=== PATIENT | female | born 1940 | race African-American/Black ===

== ENCOUNTER → 2021-06-29 14:44 | Outpatient (CLI) | payer MEDICARE, SELFPAY ==
--- NOTE | ~2021-06-29 | XR_ITS ---
XR hip RT min 2V DATE: 06/29/2021 14:58 INDICATION: Pain in right hip TECHNIQUE: AP, lateral and cross table lateral views of right hip COMPARISON: None FINDINGS: No fracture, dislocation, avascular necrosis or bone destruction is detected. There is joint space narrowing and spurring consistent with osteoarthritis. IMPRESSION: Moderate osteoarthritis of right hip Reviewed, dictated and finalized at location A.
== END ==
PROVIDERS: PCP Internal Medicine; Visit Provider Internal Medicine
DX: M25.551 Pain in right hip (principal); M16.11 Unilateral primary osteoarthritis, right hip
CPT/HCPCS: 73502

== ENCOUNTER 2022-01-02 11:29 | Outpatient (CLI) | payer MEDICARE, SELFPAY ==
[2022-01-02 19:23] LABS: Alanine Aminotransferase 22 U/L (6-35); Albumin Level 4.3 g/dL (3.5-5.1); Alkaline Phosphatase 64 U/L (38-126); Anion Gap 14 mmol/L (8-16); Aspartate Amino Transferase 28 U/L (14-36); Bilirubin,Total 0.6 mg/dL (0.2-1.3); Blood Urea Nitrogen 19 mg/dL (7-17); Calcium 9.8 mg/dL (8.4-10.2); Carbon Dioxide 24 mmol/L (22-30); Chloride 102 mmol/L (98-107); Cholesterol 165 mg/dL (0-200); Estimated Glomerular Filt Rate > 60; Glucose 105 mg/dL (65-110); HDL Direct 39 mg/dL; Potassium 3.6 mmol/L (3.4-5.0); Sodium 140 mmol/L (137-145); Triglycerides 96 mg/dL (<150); Uric Acid 3.9 mg/dL (2.5-7.5)
[2022-01-02 19:34] LABS: LDL Cholesterol Direct 86 mg/dL
== END 2022-01-02 11:30 | disposition home or self-care (01) ==
LOC: ANHGOSHLAB 11:31
PROVIDERS: PCP Family Medicine; Visit Provider Family Medicine
DX: M10.9 Gout, unspecified (principal); I10 Essential (primary) hypertension; E03.9 Hypothyroidism, unspecified; E78.5 Hyperlipidemia, unspecified
CPT/HCPCS: 36415; 80053; 80061; 84443; 84550

== ENCOUNTER 2022-01-14 15:27 | Emergency (ER) | payer MEDICARE, SELFPAY ==
--- NOTE | 2022-01-14 15:42 | ED.URI ---
HPI - URI/Sore Throat General Stated Complaint: cough,nasal drainage Time Seen by Provider: 01/14/22 15:55 Source: patient and RN notes reviewed Mode of arrival: ambulatory Limitations: no limitations History of Present Illness HPI Narrative: 81-year-old female presents with concern for sore throat, cough that started yesterday. She reports fatigue. She reports her daughter at home has had similar symptoms for 1 week. She denies any [id number] mention. She denies fever, chills, sweats, shortness of breath. Denies nausea, vomiting, diarrhea MD elicited complaint: cough and sore throat Related Data Home Medications Medication Instructions Recorded Confirmed bimatoprost 0.01 % eye drops 1 drop ophthalmic (eye) DAILY 03/03/19 08/09/21 (Lumigan) dorzolamide 22.3 mg-timolol 6.8 1 drop ophthalmic (eye) BID 03/03/19 08/09/21 mg/mL eye drops (Cosopt) Allergies Allergy/AdvReac Type Severity Reaction Status Date / Time Penicillins Allergy Intermediate rash Verified 01/01/22 10:11 codeine Allergy Mild Nausea Verified 01/01/22 10:11 hydrocodone Allergy Mild nausea Verified 01/01/22 10:11 Review of Systems Review of Systems: CONSTITUTIONAL: Reports malaise, fatigue. Denies chills, sweats, or fever. EYES: Denies visual changes, redness, or discharge. ENT: Reports rhinorrhea, congestion, and sore throat. Denies sinus pain, otalgia CARDIOVASCULAR: Denies chest pain, palpitations, or edema. RESPIRATORY: Reports cough. Denies dyspnea. GASTROINTESTINAL: Denies abdominal pain, nausea, vomiting, diarrhea SKIN: Denies rash or itching. MUSCULOSKELETAL: Denies myalgia. NEUROLOGIC: Denies headache. All systems reviewed & are unremarkable except as noted in HPI and below COUNTS INCLUDE 234 BEDS AT THE [facility] Past Medical History Medical History Body mass index (BMI) 40.0-44.9, adult Chronic GERD Dyslipidemia Essential (primary) hypertension GERD (gastroesophageal reflux disease) Gout without tophus Hip pain, right History of colon polyps Hyperlipidemia Hypertension Hypothyroidism (acquired) Morbid obesity Morbid obesity with body mass index (BMI) of 40.0 to 49.9 Other and unspecified hyperlipidemia Plantar fascial fibromatosis Post-menopause Primary open-angle glaucoma, bilateral, mild stage Trochanteric bursitis, right hip Surgical History Surgical History H/O hysterectomy for benign disease Family History Family History Sibling Family history of liver disease, Onset Age: 69 Father Family history of Parkinson's disease, Onset Age: 83 Mother Patient's mother is , Onset Age: 78 Social History Social History Smoking status: Never smoker Second hand tobacco smoke exposure: Yes Alcohol intake: current Comments At time of signature, agree with nursing past medical, surgical, social and family history. There is no relevant family history pertinent to the presenting complaint Exam Narrative: GENERAL: Well-appearing, well-nourished, and in no acute distress. HEAD: Normocephalic EYES: PERRLA, conjunctivae clear ENT: Nares clear, clear discharge. Mucous membranes moist. TM pearly mckenzie with dull light reflex bilaterally; no tragal tenderness. Oropharynx not erythematous without lesions. Tonsils not enlarged and without exudate, no drooling, no hoarseness, no trismus, uvula midline. NECK: Supple. No lymphadenopathy CHEST: Clear to auscultation, breath sounds equal. No wheezing, rhonchi, rales, or stridor. No respiratory distress, speaks in full sentences. HEART: Regular rate and rhythm. No murmur heard. SKIN: Warm, dry, no rash. NEURO: Alert and oriented x3. PSYCH: Normal mood and affect Course Course Emergency Course: Patient is aware of diagnosis, understands and agrees to tomeka
[2022-01-14 16:00] VITALS: BP 124/80; PULSE 85; RESP 15; TEMP 36.6; O2SAT 100
== END 2022-01-14 16:23 | disposition home or self-care (01) ==
PROVIDERS: Emergency Provider Nurse Practitioner; PCP Family Medicine
DX: J06.9 Acute upper respiratory infection, unspecified (principal); Z20.822 Contact with and (suspected) exposure to COVID-19; E78.5 Hyperlipidemia, unspecified; I10 Essential (primary) hypertension; K21.9 Gastro-esophageal reflux disease without esophagitis; M10.9 Gout, unspecified; R78.5 Finding of other psychotropic drug in blood; E03.9 Hypothyroidism, unspecified; E66.01 Morbid (severe) obesity due to excess calories; Z68.41 Body mass index [BMI] 40.0-44.9, adult
CPT/HCPCS: 87426; 99213; C9803; G0463

== ENCOUNTER 2022-02-05 14:47 | Outpatient (CLI) | payer MEDICARE, SELFPAY ==
--- NOTE | ~2022-02-05 | US_ITS ---
EXAMINATION: US venous doppler LE RT DATE: 02/05/2022 15:25 INDICATION: Right lower limb localized edema. TECHNIQUE: Grayscale ultrasound images without and with compression and Doppler ultrasound images of the right lower extremity veins were obtained. COMPARISON: None. FINDINGS: The visualized portions of right common femoral vein, profunda (deep) femoral vein, femoral vein, pop liteal vein, peroneal veins, posterior tibial veins, and greater saphenous vein outflow are patent. IMPRESSION: 1. No deep venous thrombosis. Reviewed, dictated and finalized at location A. 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
== END 2022-02-05 14:48 | disposition home or self-care (01) ==
PROVIDERS: PCP Family Medicine; Visit Provider Nurse Practitioner Family
DX: R60.0 Localized edema (principal)
CPT/HCPCS: 93971

== ENCOUNTER 2022-05-12 12:14 | Emergency (ER) | payer MEDICARE, SELFPAY ==
--- NOTE | 2022-05-12 12:16 | ED.EYEPROB ---
HPI - Eye Problem General Chief complaint: Eye Problems Stated complaint: rt eye is red Time Seen by Provider: 05/12/22 12:16 Source: patient and RN notes reviewed History of Present Illness HPI Narrative: Patient is an 82-year-old female who presents to Urgent Care with her friend with complaints of right eye redness. Patient states that her friend noticed late last night and she woke up with some increased redness morning. Patient denies any vision changes, headache or injury to the eye. States that she does take eyedrops for glaucoma. States that the eye is slightly itchy and has been having some clear tearing. No other acute complaints. No acute distress noted. Patient aware of plan of care. Some parts of this dictation were generated by voice recognition software and may contain typographical and/or grammatical inaccuracies. Related Data Home Medications Medication Instructions Recorded Confirmed bimatoprost 0.01 % eye drops 1 drop ophthalmic (eye) DAILY 03/03/19 05/12/22 ([facility]igan) dorzolamide 22.3 mg-timolol 6.8 1 drop ophthalmic (eye) BID 03/03/19 05/12/22 mg/mL eye drops (Cosopt) Allergies Allergy/AdvReac Type Severity Reaction Status Date / Time Penicillins Allergy Intermediate rash Verified 05/12/22 12:25 codeine Allergy Mild Nausea Verified 05/12/22 12:25 hydrocodone Allergy Mild nausea Verified 05/12/22 12:25 Review of Systems Review of Systems: CONSTITUTIONAL: Denies fever, chills, or sweats. EYES: Denies visual changes. Reports of redness to the right eye with clear drainage and mild itching ENT: Denies rhinorrhea, congestion, sore throat, or otalgia. CARDIOVASCULAR: Denies chest pain, palpitations, or edema. RESPIRATORY: Denies cough or dyspnea. GASTROINTESTINAL: Denies abdominal pain, nausea, vomiting, or diarrhea. GENITOURINARY: Denies dysuria or hematuria. SKIN: Denies rash or itching. MUSCULOSKELETAL: Denies back pain, joint pain, or myalgia. NEUROLOGIC: Denies headache, numbness, or weakness. All other systems reviewed are negative, except as documented in HPI. [facility] Past Medical History Medical History Body mass index (BMI) 40.0-44.9, adult Chronic GERD Dyslipidemia Essential (primary) hypertension GERD (gastroesophageal reflux disease) Gout without tophus Hip pain, right History of colon polyps Hyperlipidemia Hypertension Hypothyroidism (acquired) Morbid obesity Morbid obesity with body mass index (BMI) of 40.0 to 49.9 Other and unspecified hyperlipidemia Plantar fascial fibromatosis Post-menopause Primary open-angle glaucoma, bilateral, mild stage Trochanteric bursitis, right hip Surgical History Surgical History H/O hysterectomy for benign disease Family History Family History Sibling Family history of liver disease, Onset Age: 69 Father Family history of Parkinson's disease, Onset Age: 83 Mother Patient's mother is , Onset Age: 78 Social History Social History Smoking status: Never smoker Second hand tobacco smoke exposure: Yes Alcohol intake: current Substance use: never Substance use type: does not use Lack of Transportation: No Lack of Food: Never True Current Housing: I Have Housing Concerned About Future Housing: No Difficulty Paying Gas/Electric Bills: No Difficulty Paying for Meds: No Currently Unemployed: No Education: Master's Degree or Higher Difficulty w/ Childcare or Family Care: No Living arrangements: with family Occupation/Education: retired Gender identity (if verbalized by the patient): Female Agree to blood products: Yes Comments At the time of my signature, I reviewed and agree with the nursing past medical, surgical, social, and family history. Ther
[2022-05-12 12:32] VITALS: BP 107/66; PULSE 81; RESP 16; TEMP 35.9; O2SAT 98
== END 2022-05-12 12:50 | disposition home or self-care (01) ==
PROVIDERS: Emergency Provider Nurse Practitioner Family; PCP Family Medicine
DX: H11.31 Conjunctival hemorrhage, right eye (principal); E78.5 Hyperlipidemia, unspecified; I10 Essential (primary) hypertension; E03.9 Hypothyroidism, unspecified
CPT/HCPCS: 99213; G0463

== ENCOUNTER → 2022-09-26 13:25 | Outpatient (CLI) | payer MEDICARE, SELFPAY ==
--- NOTE | ~2022-09-26 | MM_ITS ---
EXAMINATION: MM screening varun BI w deepa HISTORY: Screening mammogram TECHNIQUE: Craniocaudal and mediolateral oblique 3-D tomosynthesis images were obtained and synthetic 2-D images were generated. CAD analysis was submitted and interpreted. COMPARISON: May 12, 2018 bilateral screening mammogram BREAST PARENCHYMAL COMPOSITION: The breasts are almost entirely fatty. FINDINGS: There is no evidence of suspicious mass, calcification, or architectural distortion to sugg est malignancy in either breast. There has been no suspicious interval change. IMPRESSION: 1. No mammographic evidence of malignancy. 2. Recommend routine screening mammography in one year. BI-RADS Category 1: Negative Reviewed, dictated and finalized at location A.
== END ==
PROVIDERS: PCP Family Medicine; Visit Provider Family Medicine
DX: Z12.31 Encounter for screening mammogram for malignant neoplasm of breast (principal)
CPT/HCPCS: 77063; 77067

== ENCOUNTER 2023-01-10 09:22 | Outpatient (CLI) | payer MEDICARE, SELFPAY ==
[2023-01-10 20:01] LABS: Alanine Aminotransferase 22 U/L (6-35); Albumin Level 4.5 g/dL (3.5-5.1); Alkaline Phosphatase 61 U/L (38-126); Anion Gap 6 mmol/L (8-16); Aspartate Amino Transferase 29 U/L (14-36); Bilirubin,Total 0.8 mg/dL (0.2-1.3); Blood Urea Nitrogen 21 mg/dL (7-17); Carbon Dioxide 31 mmol/L (22-30); Chloride 104 mmol/L (98-107); Cholesterol 179 mg/dL (0-200); Estimated Glomerular Filt Rate > 60; Glucose 89 mg/dL (65-110); HDL Direct 44 mg/dL; Potassium 3.9 mmol/L (3.4-5.0); Sodium 141 mmol/L (137-145); Triglycerides 94 mg/dL (<150); Uric Acid 4.3 mg/dL (2.5-7.5)
[2023-01-10 20:20] LABS: LDL Cholesterol Direct 94 mg/dL
[2023-01-10 20:30] LABS: Free T4 Free Thyroxine 1.12 ng/mL (0.78-2.19)
== END 2023-01-10 09:23 | disposition home or self-care (01) ==
LOC: ANHGOSHLAB 09:24
PROVIDERS: PCP Family Medicine; Visit Provider Family Medicine
DX: Z13.220 Encounter for screening for lipoid disorders (principal); M10.9 Gout, unspecified; Z13.228 Encounter for screening for other metabolic disorders; E03.9 Hypothyroidism, unspecified
CPT/HCPCS: 36415; 80053; 80061; 84439; 84443; 84550

== ENCOUNTER 2024-01-29 11:09 | Outpatient (CLI) | payer MEDICARE, SELFPAY ==
[2024-01-29 18:52] LABS: Alanine Aminotransferase 16 U/L (6-35); Albumin Level 4.1 g/dL (3.5-5.1); Alkaline Phosphatase 67 U/L (38-126); Anion Gap 10 mmol/L (4-12); Aspartate Amino Transferase 35 U/L (14-36); Bilirubin,Total 0.8 mg/dL (0.2-1.3); Blood Urea Nitrogen 21 mg/dL (7-17); Carbon Dioxide 24 mmol/L (22-30); Chloride 105 mmol/L (98-107); Cholesterol 167 mg/dL (0-200); Estimated Glomerular Filt Rate > 60; Glucose 95 mg/dL (65-110); HDL Direct 44 mg/dL; Sodium 139 mmol/L (137-145); Triglycerides 106 mg/dL (<150); Uric Acid 4.2 mg/dL (2.5-7.5)
[2024-01-29 19:03] LABS: LDL Cholesterol Direct 83 mg/dL
[2024-01-29 19:28] LABS: Free T4 Free Thyroxine 1.19 ng/mL (0.78-2.19)
== END 2024-01-29 11:10 | disposition home or self-care (01) ==
LOC: ANHGOSHLAB 11:10
PROVIDERS: PCP Family Medicine; Visit Provider Family Medicine
DX: E03.9 Hypothyroidism, unspecified (principal); M10.9 Gout, unspecified; I10 Essential (primary) hypertension; Z13.220 Encounter for screening for lipoid disorders; Z13.228 Encounter for screening for other metabolic disorders
CPT/HCPCS: 36415; 80053; 80061; 84439; 84443; 84550

== ENCOUNTER 2024-07-26 11:29 | Outpatient (CLI) | payer MEDICARE, SELFPAY ==
--- NOTE | ~2024-07-26 | XR_ITS ---
Right Knee Technique: AP, lateral, and sunrise views were obtained. Clinical History: Pain Findings: No fracture or dislocation is seen. Osseous alignment is anatomic. There is mild degenerati ve change about the knee. Chondrocalcinosis of the menisci noted. No joint effusion is seen. Impression: Mild degenerative change with chondrocalcinosis of the menisci. Reviewed, dictated and finalized at location . Impression: Mild degenerative change with chondrocalcinosis of the menisci.
--- NOTE | ~2024-07-26 | XR_ITS ---
AP and lateral views of the right tibia/fibula Clinical History: Pain Findings: No acute fracture or dislocation is seen. Osseous alignment is anatomic. Joint there is min imal degenerative spurring about the knee. Chondrocalcinosis of the menisci at the knee noted. There is mild diffuse subcutaneous soft tissue edema. There is enthesopathic change or heterotopic ossifica tion at the distal Achilles insertion. Impression: No acute osseous or articular abnormality. Mild diffuse subcutaneous soft tissue edema. Mild degenerative change at the knee with chondrocalcinosis of the menisci. Reviewed, dictated and finalized at [facility]. Impression: No acute osseous or articular abnormality. Mild diffuse subcutaneous soft tissue edema. Mild degenerative change at the knee with chondrocalcinosis of the menisci.
== END 2024-07-26 11:30 | disposition home or self-care (01) ==
LOC: GOSHIMG 11:29
PROVIDERS: PCP Family Medicine; Visit Provider Family Medicine
DX: M17.11 Unilateral primary osteoarthritis, right knee (principal); M11.261 Other chondrocalcinosis, right knee; W19.XXXA Unspecified fall, initial encounter
CPT/HCPCS: 73564; 73590

== ENCOUNTER 2024-07-28 11:15 | Outpatient (CLI) | payer MEDICARE, SELFPAY ==
[2024-07-28 20:15] LABS: Hematocrit 39.9 % (37.0-47.0); Hemoglobin 12.3 g/dL (12.0-15.0); Mean Corpuscular HGB Conc 30.8 g/dl (32-36); Mean Corpuscular Hemoglobin 28.1 pg (26-34); Mean Corpuscular Volume 91.3 fl (80-100); Mean Platelet Volume 10.8 fl (7.4-10.4); Platelet Count Result 254 k/mm3 (150-375); Red Blood Count 4.37 M/mm3 (4.2-5.4); Red Cell Distribution Width 14.4 % (11.5-14.5); White Blood Count 4.4 K/mm3 (4.5-10.0)
[2024-07-28 21:17] LABS: Free T4 Free Thyroxine 1.28 ng/dL (0.78-2.19)
[2024-07-28 21:27] LABS: Alanine Aminotransferase 17 U/L (6-35); Albumin Level 4.3 g/dL (3.5-5.1); Alkaline Phosphatase 74 U/L (38-126); Anion Gap 12 mmol/L (4-12); Aspartate Amino Transferase 29 U/L (14-36); Bilirubin,Total 0.7 mg/dL (0.2-1.3); Blood Urea Nitrogen 17 mg/dL (7-17); Calcium 10.1 mg/dL (8.4-10.2); Carbon Dioxide 25 mmol/L (22-30); Chloride 105 mmol/L (98-107); Cholesterol 172 mg/dL (0-200); Estimated Glomerular Filt Rate > 60; Glucose 88 mg/dL (65-110); HDL Direct 42 mg/dL; Potassium 3.9 mmol/L (3.4-5.0); Sodium 142 mmol/L (137-145); Triglycerides 102 mg/dL (<150)
[2024-07-28 21:38] LABS: LDL Cholesterol Direct 79 mg/dL
== END 2024-07-28 11:16 | disposition home or self-care (01) ==
LOC: ANHGOSHLAB 11:17
PROVIDERS: PCP Family Medicine; Visit Provider Family Medicine
DX: E78.5 Hyperlipidemia, unspecified (principal); I10 Essential (primary) hypertension; E03.9 Hypothyroidism, unspecified; E66.01 Morbid (severe) obesity due to excess calories
CPT/HCPCS: 36415; 80053; 80061; 84439; 84443; 85027

== ENCOUNTER 2024-11-23 10:59 | Outpatient (CLI) | payer MEDICARE, SELFPAY ==
[2024-11-23 14:33] LABS: Hematocrit 42.6 % (37.0-47.0); Hemoglobin 13.3 g/dL (12.0-15.0); Mean Corpuscular HGB Conc 31.2 g/dl (32-36); Mean Corpuscular Hemoglobin 28.1 pg (26-34); Mean Corpuscular Volume 90.1 fl (80-100); Platelet Count Result 280 k/mm3 (150-375); Red Blood Count 4.73 M/mm3 (4.2-5.4); White Blood Count 4.5 K/mm3 (4.5-10.0)
[2024-11-23 14:55] LABS: Alanine Aminotransferase 18 U/L (6-35); Albumin Level 4.3 g/dL (3.5-5.1); Alkaline Phosphatase 75 U/L (38-126); Anion Gap 11 mmol/L (4-12); Aspartate Amino Transferase 46 U/L (14-36); Bilirubin,Total 0.6 mg/dL (0.2-1.3); Blood Urea Nitrogen 22 mg/dL (7-17); Calcium 10.4 mg/dL (8.4-10.2); Carbon Dioxide 24 mmol/L (22-30); Chloride 104 mmol/L (98-107); Cholesterol 160 mg/dL (0-200); Estimated Glomerular Filt Rate > 60; Glucose 92 mg/dL (65-110); HDL Direct 39 mg/dL; Potassium 4.3 mmol/L (3.4-5.0); Sodium 139 mmol/L (137-145); Total Protein 8.1 g/dL (6.3-8.2); Triglycerides 97 mg/dL (<150)
[2024-11-23 15:08] LABS: Free T4 Free Thyroxine 1.27 ng/dL (0.78-2.19)
[2024-11-23 15:30] LABS: Thyroid Stimulating Hormone 2.020 uIU/mL (0.465-4.680)
== END 2024-11-23 11:00 | disposition home or self-care (01) ==
PROVIDERS: PCP Family Medicine; Visit Provider Family Medicine
DX: E78.5 Hyperlipidemia, unspecified (principal); I10 Essential (primary) hypertension; E66.01 Morbid (severe) obesity due to excess calories; E03.9 Hypothyroidism, unspecified
CPT/HCPCS: 36415; 80053; 80061; 84439; 84443; 85027

== ENCOUNTER 2025-02-03 14:58 | Outpatient (CLI) | payer MEDICARE, SELFPAY ==
--- OUTSIDE RECORDS SUMMARY | 2013-05-12 12:55 | XMS_ITS | Continuity of Care Document ---
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 Name Role Phone Delma SOLOMONWilli Unavailable Unavailable Procedures Procedure Date PT RE-EVALUATION THERAPEUTIC EXERCISES NEUROMUSCULAR RE-ED MANUAL THERAPY HOT/COLD PACK ELECTRIC STIMULATION UNATT Self Care - Current Self Care - Goal THERAPEUTIC EXERCISES NEUROMUSCULAR RE-ED MANUAL THERAPY HOT/COLD PACK ELECTRIC STIMULATION UNATT THERAPEUTIC EXERCISES NEUROMUSCULAR RE-ED MANUAL THERAPY HOT/COLD PACK ELECTRIC STIMULATION UNATT THERAPEUTIC EXERCISES NEUROMUSCULAR RE-ED MANUAL THERAPY HOT/COLD PACK ELECTRIC STIMULATION UNATT THERAPEUTIC EXERCISES NEUROMUSCULAR RE-ED MANUAL THERAPY HOT/COLD PACK ELECTRIC STIMULATION UNATT THERAPEUTIC EXERCISES NEUROMUSCULAR RE-ED MANUAL THERAPY HOT/COLD PACK ELECTRIC STIMULATION UNATT THERAPEUTIC EXERCISES NEUROMUSCULAR RE-ED MANUAL THERAPY HOT/COLD PACK ELECTRIC STIMULATION UNATT PT EVALUATION THERAPEUTIC EXERCISES Self Care - Current Self Care - Goal Medications Name Dose Freq Route DOC Feb Pain Assess Positive DOC 2012 Future Fall Risk Positive 2+ Falls or 1 Fall w/ Injury RA DOC Scre ened for Fall Risk Advance Directives Directive Yes / No Effective Date File Name No Information Encounters Encounter Description Practice Location Reason(s) For Visit Diagnoses Date Provider Providers Copied on Encounter [facility] [address] [place] [address], [place], [place], [id number], tel:[phone] [place] No Information 2-201 4 Nguyễn Monica. [address] [place] [address], [facility] [address], [place], [place], [facility], . tel: [phone] [facility] [address] [facility] [address], [place], [place], [id number], tel:[phone] [place] No Information 2-201 4 Nguyễn Monica. [address] [place] [address], [address], [place], [place], [facility], . tel: [phone] [facility] [address] [place] [address] [address], [place], [place], [id number], tel:[phone] [place] No Information Feb-3 1-201 3 Nguyễn Monica. [address] [place] [address], [address], [place], [place], [facility], . tel: [phone] [facility] [address] [facility] [address], [place], [place], [id number], tel:[phone] [place] No Information Feb-2 6-201 3 Nguyễn Monica. [address] [place] [address], [address], [place], [place], [facility], . tel: [phone] [facility] [address] [facility] [address], [place], [place], [id number], tel:[phone] [place] No Information Dec-2 3-201 3 Carolann Burke. [address] [place] [address], [facility] [address], [place], [place], [facility], [place]. tel: [phone] [facility] [address] [facility] [address], [place], [place], [id number], tel:[phone] [place] No Information Dec-2 0-201 3 Nguyễn Monica. [address] [place] [address], [address], [place], [facility], . tel: [phone] [facility] [address] [facility] [address], [place], [place], [id number], tel:[phone] [place] No Information 7-201 3 Nguyễn Monica. [address] [place] [address], [address], [place], [facility], . tel: [phone] [facility] [address] [place] [address] [address], [place], [place], [id number], tel:[phone] [place] No Information 3-201 3 Nguyễn Monica. [address] [place] [address], [facility] [address], [place], [facility], . tel: [phone] [address], [place], [place], [id number], tel:[phone] [place] Pain in joint involving shoulder region 1 3 Nguyễn Monica. [address] [place] [address], [address], [place], [facility], . tel: [phone] Family History Family Member Type Diagnosis Age At Onset No Information Payers Payer name Insurance type Covered democrat ID Susi man(s) Medicare [place] [id number] Social History Type Description Quantity Date Captured Comments Sex Female Smoking Status No Information Chief Complaint And Reason For Visit No Information Reason For Referral Reason For Referral No Information History Of Present Illness Encounter Date Complaint History Of Prese nt Illness No Information Functional Status Date Functional Assessmen t No Information Instructions Date Instruction Additional Infor mation No Information Assessments Type Assessment Date No Information Patient Care Teams Name Effective Dates (start - stop) Status Members No Information
[2025-02-03 19:58] LABS: Alanine Aminotransferase 18 U/L (6-35); Albumin Level 4.2 g/dL (3.5-5.1); Alkaline Phosphatase 68 U/L (38-126); Aspartate Amino Transferase 36 U/L (14-36); Bilirubin,Total 0.5 mg/dL (0.2-1.3); Total Protein 7.5 g/dL (6.3-8.2)
== END 2025-02-03 14:59 | disposition home or self-care (01) ==
LOC: ANHGOSHLAB 14:59
PROVIDERS: PCP Family Medicine; Visit Provider Family Medicine
DX: R74.01 Elevation of levels of liver transaminase levels (principal)
CPT/HCPCS: 36415; 80076